=== PATIENT | female | born 1990 | race Caucasian/White ===

== ENCOUNTER 2020-09-26 12:27 | Inpatient (IN) | payer OTHER, SELFPAY ==
[2020-09-26] VITALS (8 sets, daily range): BP systolic 109–143; BP diastolic 70–83; PULSE 79–83; RESP 16–18; TEMP 36.6; O2SAT 98–100; BMI 41.7
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
--- NOTE | 2020-09-26 12:51 | ECG_ITS ---
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 Measurements Intervals [place] Rate: 68 P: 53 NE: 123 QRS: 46 QRSD: 93 T: 43 QT: 386 QTc: 412 Interpretive Statements SINUS RHYTHM WITH SINUS ARRHYTHMIA NONSPECIFIC T-WAVE ABNORMALITY No previous ECG available for comparison Electronically Signed On 09-28-2020 12:11:50 CDT by Bhavana Marquez M.D. [id number]
[2020-09-26 13:15] LABS: Basophils % 0.1 %; Eosinophils % 0.6 %; Hematocrit 34.2 % (37.0-47.0); Hemoglobin 11.1 g/dL (11.5-15.3); Lymphocytes # 1.2 10^3/uL (0.8-4.8); Mean Corpuscular HGB Conc 32.5 g/dL (30.0-36.0); Mean Corpuscular Hemoglobin 27.7 pg (28.0-34.0); Mean Corpuscular Volume 85.3 fL (81-99); Mean Platelet Volume 9.9 fL (7.4-10.4); Monocytes # 0.4 10^3/uL (0.2-0.9); Neutrophils # 5.34 10^3/uL (1.8-7.7); Nucleated Red Blood Cells % 0 %; Platelet Count 260 10^3/cmm (130-400); Red Blood Count 4.01 10^6/uL (4.1-5.3); Red Cell Distribution Width 14.5 % (12.1-15.1); White Blood Count 6.9 10^3/uL (4.0-10.0)
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
[2020-09-26 13:37] LABS: Alanine Aminotransferase 10 U/L (0-33); Albumin Level 3.8 g/dL (3.5-5.2); Alkaline Phosphatase 81 IU/L (35-105); Anion Gap 13.3 (5-19); Aspartate Amino Transferase 8 U/L (0-32); Blood Urea Nitrogen 6 mg/dL (6-20); Calcium 8.2 mg/dL (8.5-10.5); Carbon Dioxide 22 mmol/L (22-29); Chloride 106 mmol/L (98-107); Glucose 86 mg/dL (65-115); Osmolality Calculated 281 mOsm/kg (285-295); Potassium 4.3 mmol/L (3.5-5.1); Sodium 137 mmol/L (136-145); Total Bilirubin 0.3 mg/dL (0.15-1.2); Total Protein 6.8 g/dL (6.6-8.7)
[2020-09-26 13:42] LABS: Add Urine Microscopic? NO; Charge for UA Resulting for Rev
[2020-09-26 13:54] LABS: Bilirubin Urine Neg (Negative); Blood Urine Neg (Negative); Glucose Urine UA Norm (Normal); Ketones Urine Negative (Negative); Leukocyte Esterase Urine Negative (Negative); Nitrate Urine Negative (Negative); Protein Urine Neg (Negative); Specific Gravity, Urine 1.005 (1.005-1.030); Urine Appearance Clear (CLEAR); Urine Color Yellow (Yellow); Urobilinogen Urine Norm (Negative); pH Urine 7 (5-7)
[2020-09-26] MEDS: iodixanol 320 mg/mL 100mL Btl IV (14:31)
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
[2020-09-26] MEDS: sodium chloride 0.9% 1,000 ML 999 ML IV (17:35)
[2020-09-27 03:00] VITALS: RESP 18
[2020-09-27 04:01] VITALS: BP 110/49; PULSE 77
[2020-09-27 09:09] VITALS: BP 118/58; PULSE 84
[2020-09-27 09:14] VITALS: RESP 16
[2020-09-27 13:49] VITALS: BP 152/69; PULSE 95
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
[2020-09-27 13:53] VITALS: BP 112/54; PULSE 78; TEMP 36.9
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
== END 2020-09-27 14:10 | disposition home or self-care (01) | DRG 833 ==
LOC: ER 14:26 → OBGYN 16:26
PROVIDERS: Admitting Provider Obstetrics & Gynecology; Emergency Provider Family Medicine; Visit Provider Obstetrics & Gynecology
DX: O9A.212 Injury, poisoning and certain other consequences of external causes complicating pregnancy, second trimester (principal); Z3A.23 23 weeks gestation of pregnancy; V43.92XA Unspecified car occupant injured in collision with other type car in traffic accident, initial encounter; Y92.008 Other place in unspecified non-institutional (private) residence as the place of occurrence of the external cause
CPT/HCPCS: 70450; 71275; 72125; 74174; 76805; 76817; 80053; 81003; 85025; 85460; 86850; 86900; 93005; 96360; 99285; J7030; Q9967